=== PATIENT | male | born 1990 | race Caucasian/White ===

== ENCOUNTER 2019-04-24 10:39 | Emergency (ER) | payer SELFPAY ==
[~2019-04-24] VITALS: Ht 172.7 cm; Wt 63.5 kg
[2019-04-24 10:45] VITALS: BP 125/75
--- NOTE | 2019-04-24 10:46 | NUR ---
PT TO ER BED 3
[2019-04-24] MEDS ORDERED: ONDANSETRON 4 MG ODT PO ONE (11:05)
--- NOTE | 2019-04-24 11:10 | NUR ---
PT C/O HEAD PAIN, BL KNEE PAIN, FEVER, COUGH X 2 DAYS, VOMITING X 5 TODAY. PATIENT STATES PAIN OF 7/10 AT THIS TIME; VSS; PATIENT POSITIONED FOR COMFORT; HOB ELEVATED; BEDRAILS UP X1; BED DOWN. ER MD MADE AWARE OF PT STATUS.
--- NOTE | 2019-04-24 11:13 | NUR ---
INFLUENZA SWAP SAMPLE OBTAINED.
[2019-04-24 11:30] VITALS: BP 118/69
--- NOTE | 2019-04-24 11:30 | NUR ---
Patient discharged with v/s stable. Written and verbal after care instructions given and explained. Patient alert, oriented and verbalized understanding of instructions. Ambulatory with steady gait. All questions addressed prior to discharge. ID band removed. Patient advised to follow up with PMD. Rx of Acetaminophen, Tamiflu, and Zofran given. Patient educated on indication of medication including possible reaction and side effects. Opportunity to ask questions provided and answered.
== END 2019-04-24 11:30 | disposition home or self-care (01) ==
LOC: MED 10:39
DX: J11.1 Influenza due to unidentified influenza virus with other respiratory manifestations (principal); R07.89 Other chest pain; R51 Headache; H92.09 Otalgia, unspecified ear; R11.10 Vomiting, unspecified
CPT/HCPCS: 87804; 99283; Q0162